=== PATIENT | female | born 1970 | race Caucasian/White ===

== ENCOUNTER 2020-10-09 19:57 | Emergency (ER) | payer OTHER ==
[2020-10-09 20:35] LABS: BASOPHIL 0.7 % (0-2); EOSINOPHIL 1.6 % (0-5); HCT 45.1 % (37.0-47.0); HGB 14.7 g/dl (12.5-16.0); LYMPHOCYTE 41.8 % (15-48); MCH 30.6 pg (25.0-31.0); MCHC 32.6 g/dL (32.0-36.0); MCV 93.8 fL (78.0-100.0); MONOCYTE 5.6 % (0-12); MPV 9.7 fL (6.0-9.5); NEUTROPHIL 49.8 % (41-80); NRBC 0; PLT 344 K/uL (150-400); RBC 4.81 M/uL (4.20-5.40); RDW 13.4 % (11.5-14.0); WBC 17.5 K/uL (4.0-10.5)
[2020-10-09 20:45] LABS: INR 0.93 (0.9-1.2); PROTHROMBIN TIME 11.8 SECONDS (11.4-13.6); PTT 27.8 SECONDS (22.2-34.7)
[2020-10-09 20:53] LABS: ALBUMIN 3.9 g/dL (3.4-5.0); BILIRUBIN - TOTAL 0.3 mg/dL (0.2-1.0); BUN/CREAT RATIO (CALC) 13.4 RATIO; CREATININE 0.67 mg/dL (0.51-0.95); GLOBULIN (CALCULATION) 3.5 g/dL; POTASSIUM 4.8 mmol/L (3.5-5.1); TOTAL PROTEIN 7.4 g/dL (6.4-8.2)
== END 2020-10-10 01:06 | disposition home or self-care (01) ==
LOC: FER 19:57
PROVIDERS: Student in an Organized Health Care Education/Training Program
DX: R07.1 Chest pain on breathing (principal); D72.829 Elevated white blood cell count, unspecified; R11.0 Nausea; E11.40 Type 2 diabetes mellitus with diabetic neuropathy, unspecified; J44.9 Chronic obstructive pulmonary disease, unspecified; F17.210 Nicotine dependence, cigarettes, uncomplicated; Z88.5 Allergy status to narcotic agent
CPT/HCPCS: 36415; 71045; 80053; 84484; 85025; 85610; 85730; 93005